=== PATIENT | female | born 1980 | race Caucasian/White ===

== ENCOUNTER → 2018-02-12 14:38 | Outpatient (CLI) | payer OTHER, SELFPAY ==
[2018-02-12 15:58] LABS: Absolute Lymphocyte Count 1.72 X10^3/ul (0.83-4.51); Absolute Neutrophil Count 4.4 X10^3/uL (2.0-7.7); Basophil# 0.02 X10^3/uL; Basophil% 0.3 % (0-1); Hematocrit 38.2 % (37-47); Hemoglobin 12.6 g/dl (12.0-15.0); Lymphocyte # 1.72 X10^3/ul (4.0); Lymphocyte % 25.9 % (19-41); Mean Corpuscular Hgb 30.3 pg (27.0-32.0); Mean Corpuscular Volume 91.8 fL (81-99); Mean Platelet Vol. 11.2 fl (6.2-12.0); Monocyte# 0.24 X10^3/uL; Monocyte% 3.6 % (0-10); Neutrophil # 4.44 X10^3/uL (2.7-7.7); POSITIVE COUNT NO; POSITIVE DIFFERENTIAL NO; POSITIVE MORPHOLOGY NO; Platelet Count 294 K/mm3 (150-450); RBC Distribution Width CV 13.4 % (11.6-14.6); Red Blood Count 4.16 M/mm3 (4.2-5.4); White Blood Count 6.6 K/mm3 (4.4-11.0)
[2018-02-12 16:12] LABS: Hemoglobin A1c 5.7 % (4.2-6.3)
[2018-02-12 16:52] LABS: ALB/GLOB Ratio 1.2 RATIO (0.9-2.4); AST(SGOT) 33 U/L (15-37); Alanine Aminotransfer ALT/SGPT 56 U/L (13-56); Albumin, Serum 4.2 g/dL (3.2-5.0); Alkaline Phosphatase 80 U/L (45-117); Anion Gap 11 (5-15); BUN 13 mg/dL (7-18); Calcium,Total 9.1 mg/dL (8.5-10.1); Chloride 103 mmol/L (98-107); Cholesterol 254 mg/dL (200); Creatinine, Serum 0.81 mg/dL (0.55-1.02); EST Glomerular Filtration Rate 84 mL/min (>60); Est Glom Filt Rate - Afr Amer 102 mL/min (>60); Globulin 3.6 g/dL (2.2-4.2); Glucose 108 mg/dL (74-106); High Density Lipoprotein 39 mg/dL; Potassium 3.6 mmol/L (3.5-5.1); Protein, Total 7.8 g/dL (6.4-8.2); Sodium Level 142 mmol/L (136-145); Thyroid Stim Hormone (TSH) 1.03 uIU/mL (0.358-3.74); Triglycerides 211 mg/dL; Very Low Density Lipoprotein 42 mg/dL (5-40)
== END ==
PROVIDERS: Family Provider Family Medicine; PCP Family Medicine; Visit Provider Family Medicine
DX: R10.11 Right upper quadrant pain (principal); E66.9 Obesity, unspecified; L83 Acanthosis nigricans
CPT/HCPCS: 36415; 80053; 80061; 83036; 84443; 85025

== ENCOUNTER → 2018-02-13 09:52 | Outpatient (CLI) | payer OTHER, SELFPAY ==
--- NOTE | 2018-02-13 09:58 | US_ITS ---
STUDY: ABDOMINAL ULTRASOUND - RIGHT UPPER QUADRANT REASON FOR VISIT: Female, 37 years old. Right upper quadrant pain. TECHNIQUE: Ultrasound evaluation of the right upper quadrant was performed with real-time and static duke-scale imaging. TECHNICAL QUALITY: Adequate. COMPARISON: None. FINDINGS: Liver: The liver measures 14.4 cm. There is increased echogenicity consistent with fatty infiltration. The bile ducts are within normal limits. There is hepatic color flow. The direction of portal flow is hepatopetal. There is no demonstrated mass lesion. Gallbladder: Normal distended gallbladder. The gallbladder wall measures 2.3 mm. There is a negative sonographic Wells's sign. There is no pericholecystic fluid. There are no gallstones. Common Bile Duct (C.B.D.): The common bile duct measures 3.3 mm. Pancreas: Normal size of the head, body and tail of the pancreas. There is normal echogenicity of the pancreas. There is no demonstrated pancreatic mass or cyst. Right Kidney: Normal size of the right kidney. . The right kidney measures 12.6 cm in length. No renal calculi nor cysts are visualized. There is no right hydronephrosis. US/Abdomen Limited IMPRESSION: Fatty infiltration of the liver. Electronically Signed: Virginia Mares MD at 10:59 EST Tel , Service support ,
== END ==
PROVIDERS: Family Provider Family Medicine; PCP Family Medicine; Referring Provider Family Medicine; Visit Provider Family Medicine
DX: R10.11 Right upper quadrant pain (principal)
CPT/HCPCS: 76705

== ENCOUNTER → 2018-03-09 08:49 | Outpatient (CLI) | payer OTHER, SELFPAY ==
--- NOTE | 2018-03-09 08:51 | NM_ITS ---
CLINICAL: 37-year-old female with reported history of right upper quadrant abdominal pain. RADIONUCLIDE HEPATOBILIARY SCINTIGRAPHY COMPARISON: Abdominal ultrasound report 02/13/2018 FINDINGS: Following the intravenous administration of 5.3 mCi of 99m Tc Mebrofenin, hepatobiliary images reveal: 1. Relatively prompt and homogeneous radiopharmaceutical concentration is noted by a normal sized liver. No parenchymal defects are identified. 2. Gallbladder activity is identified at 12 minutes post radiopharmaceutical administration. 3. Small intestinal tract is observed at 26 minutes following tracer injection. 4. Washout of the radiopharmaceutical by the hepatic parenchyma appears qualitatively normal. The patient was administered a fatty meal (8 ounces BOOST-30 grams fat). The post fatty meal consumption gallbladder ejection fraction calculated at 47 minutes was noted to be 31.0 % (normal greater than 30%). IN/Hepatobilliary Img w/Pharm Int IMPRESSION: 1. NORMAL 99m Tc Mebrofenin hepatobiliary imaging examination with fatty meal ingestion. A. A gallbladder ejection fraction calculated to be greater than 30% following the administration of a consumed fatty meal makes the probability of functional hepatobiliary disease (gallbladder and/or sphincter of Oddi dyskinesia) and/or organic hepatobiliary disease (chronic acalculous cholecystitis and/or cystic duct syndrome) to be low. (Kermit and Dell, J Nucl Med 43: 1603, 2002). Electronically Signed: eHctor Keith DO at 10:01 EST Tel , Service support ,
== END ==
PROVIDERS: Family Provider Family Medicine; PCP Family Medicine; Referring Provider Family Medicine; Visit Provider Family Medicine
DX: R10.11 Right upper quadrant pain (principal)
CPT/HCPCS: 78227; A9537

== ENCOUNTER 2018-04-10 10:01 | Day surgery (SDC) | payer OTHER, SELFPAY ==
[2018-03-18 12:33] VITALS: BMI 34.4
[2018-04-08 13:14] LABS: Bacteria 0 SEEN /hpf (None Seen); Mucous, Urine 0 SEEN /hpf (<or=2+)
--- NOTE | 2018-04-08 13:16 | EKG12_ITS ---
Test Reason : PREOP Blood Pressure : / mmHG Vent. Rate : 080 BPM Atrial Rate : 080 BPM P-R Int : 142 ms QRS Dur : 088 ms QT Int : 386 ms P-R-T Axes : 043 044 024 degrees QTc Int : 445 ms Normal sinus rhythm Normal ECG Confirmed by KELY RODRIGUEZ, JONAH ([id number]), television news video editor LEANDRA ALVARADO ([id number]) on 04/13/2018 9:59:49 AM Referred By: Azar Brady Confirmed By:JONAH EDGE MD
[2018-04-08 13:37] LABS: Color, Urine Yellow (Yellow); Glucose, Dipstick Normal (Normal); Ketone-Dipstick Negative (Negative); Leukocyte Esterase-Dipstick 500 /ul (Negative); Nitrite-Dipstick Negative (Negative); Occult Blood-Urine 150 /ul (Negative); Protein-Dipstick Negative (Negative); Specific Gravity, Urine 1.005 (1.002-1.030); Urine Bilirubin Dipstick Negative (Negative); Urine Clarity Clear (Clear); Urine Urobilinogen Normal (Normal)
[2018-04-08 13:44] LABS: Red Blood Cells-Urine 0-5 SEEN /hpf (0-5); Squamous Epithelial Cells - UA 0-5 SEEN /hpf (5-10); White Blood Cells 25-50 SEEN /hpf (0-5)
[2018-04-10] VITALS (8 sets, daily range): BP systolic 97–116; BP diastolic 56–66; PULSE 61–85; RESP 14–16; TEMP 36.5–37; O2SAT 92–100; BMI 33.3
[2018-04-10 10:21] LABS: Internal QC Validated? YES +Cl - CLEAR BKGD
[2018-04-10 10:25] LABS: Pregnancy, Urine Negative Negative
[2018-04-10] MEDS: Cefazolin 2 GM in 0.9% Normal Saline 100 ML IV (12:10)
--- NOTE | 2018-04-10 12:32 | DCINST_ITS ---
Discharge Diet: Light diet - advance as tolerated Discharge Activity: May Not Drive - for 2-3 days or while taking narcotic pain medications., - - Do not drive, work heavy equipment or sign legal documents for 24 hours. May shower in (days): 1 - with the bandage in place. Additional Activity Instructions:: Pain medication may cause nausea. You should typically eat light foods as you take your pain medications. Pain medication may also cause constipation. If this is a problem for you, please discuss with your doctor. Call your doctor if your incision/area has: Continuous Slow Oozing, Sudden Increased Bleeding, Increased Pain/ Swelling, Increased Redness, Foul Smelling Discharge Call your doctor if you observe: Fever of 101 or Higher Suture Line Care: Avoid Pulling/Pushing, Avoid Pinching/Bending Additional Dressing/Incision Instructions:: Leave operative bandaids on for 2 days. When you remove dressing, leave Steri-Strips on until your follow-up appointment, or until the Steri-Strips fall off on their own. Allergies/Adverse Reactions: Allergies No Known Allergies Allergy (Verified 03/18/18 12:33) Medications to take at Discharge fluoxetine 20 mg capsule 20 mg PO DAILY 03/18/18 ibuprofen 200 mg capsule 200 mg PO TID-QID PRN 03/18/18 loratadine 10 mg tablet 10 mg PO DAILY PRN 03/18/18 Hydrocodone Bitart/Apap 5-325 [[place] 5MG-325MG] 1 - 2 tab PO Q4H PRN PRN 5 Days #30 tab 04/10/18 The following prescriptions were given: Hydrocodone Bitart/Apap 5-325 [[place] 5MG-325MG] 1 - 2 tab PO Q4H PRN PRN 5 Days #30 tab PRN Reason: Pain Orders to be completed after discharge: 12 Lead EKG [[facility]] Location: None Selected Primary Care Physician: Dann Kent MD [Primary Care Provider] - Test Results: Test results from this visit will be discussed in further detail at your follow- up appointment, if applicable. Please Follow Up With: Azar Brady MD - Please call [phone] to schedule an appointment. When: 7 days after your surgery.
--- NOTE | 2018-04-10 12:40 | GALL_PTH ---
PATIENT: SHANTA SCOTT LOC: [facility] [place] U#:[id number] AGE/SX: 37/F ROOM: RE04/10/[address]: Dr. Azar Brady MD : 1980 BED: DIS: 04/10/2018 SPEC #: [id number] RECD: 04/13/18 07:15 STATUS: SYED ALEX #: [id number] JAKE: 04/10/18 12:[address]: Azar Brady DEPT: SURGICAL PATHOLOGY RECD BY: Hector Shah ENTERED: 04/13/18 08:10 SP TYPE: FARIDA ARANA DR: MD Dr. Dann Mack MD Tissues: Gallbladder, NOS Procedures: Surgery Specimen Level III HEADER OPERATION: Laparoscopic cholecystectomy PRE-OP DIAGNOSIS: Biliary dyskinesia TISSUE SUBMITTED: Gallbladder MICROSCOPIC DIAGNOSIS Gallbladder, cholecystectomy: Mild chronic cholecystitis and focal cholesterolosis. No stones are identified in the container or in the gallbladder. SJ:lashaun 04/14/18 MICROSCOPIC DESCRIPTION Slides are reviewed. GROSS DESCRIPTION Received is one container labeled with the patient's name and designated gallbladder. The specimen consists of a gallbladder measuring 9 cm in length and up to 3 cm in diameter. The external surface is pink-espinosa, smooth and glistening for the most part. Focally it is granular, hemorrhagic and contains cautery artifact. The gallbladder contains green-yellow mucoid bile. No stones are identified in the container or in the gallbladder. The mucosa is bile-stained and without any mass lesions. The gallbladder wall measures 0.1 cm in thickness. Bonderizer Operator sections from the gallbladder and the cystic duct are submitted in one cassette. / SJ:lashaun 04/13/18 TC:3 CPT: 76865
[2018-04-10] MEDS: Bupivacaine Mpf 0.5% 30 ML VIAL (12:50)
--- NOTE | 2018-04-10 12:51 | PCM.OPRPT ---
Problem List (1) Biliary dyskinesia Status: Acute (2) Right upper quadrant abdominal pain Status: Acute (3) Biliary colic symptom Status: Acute Report of Operation Date of Procedure: 04/10/18 Pre-Operative Diagnosis: 1. Biliary dyskinesia. 2. Right upper quadrant abdominal pain. 3. Biliary colic symptoms Post-Operative Diagnosis: Same Surgery/Procedure Performed:: Laparoscopic cholecystectomy Anesthesiologist: Cornelio Rod Specimen's removed: Gallbladder Drains: None Estimated Blood Loss (mL): < 25 CC Fluids Replaced: 900 cc of lactated Ringer's Description of Procedure: Patient was brought to the operating room placed in supine position under excellent general trach intubation the abdomen was sterilely prepped and draped in usual fashion. Local was injected infraumbilically. A curvilinear incision was made. Dissection was carried down to fascia. Fascia was grasped with Elliot. Varies needle was placed inside the abdomen. The abdomen was insufflated to 15 torr. A 10/12 trocar was placed without difficulty. Patient was placed in the head up and rotated to the left position. A subxiphoid #5 trocar was placed, inferior to this another #5 trocar was placed, laterally a #5 trocar was placed. All these under direct visualization without injury to underlying structures. Fundus of the gallbladder was grasped and retracted in cephalad direction infundibulum was grasped retracted laterally. I dissected out the cystic duct. Place hemoclips proximal and distally on the duct and ligated the duct. Identified the cystic artery. Placed hemoclips proximally distally on the artery and ligated the artery. Deliver the gallbladder from the gallbladder bed with use of electrocautery had excellent hemostasis and no spillage of bile. Placed a specimen specimen bag delivered through the umbilical port without difficulty. Reinflated the abdomen. Reinspected the liver bed. Good hemostasis was noted. Clips room in good placement. Remove the trochars under direct visualization good hemostasis was noted. Close the fascia the umbilical port with a [id number] stitch of 0 Vicryl. Skin incisions were closed with subcuticular stitches of 4-0 Monocryl. Steri-Strips were applied. Sterile dressings were applied. The patient tolerated the procedure well. - Admit VTE Documentation VTE Present on Admission: No VTE Mechan Device Prophylaxis: SCD's VTE Pharm Prophylaxis ordered?: No Reason prophylaxis not ordered:: Treatment Not Indicated
[2018-04-10] MEDS: HYDROcodone Bitartrate/Apap 5/325 Tablet PO (15:48)
== END 2018-04-10 16:35 | disposition home or self-care (01) ==
LOC: SDC 10:02 → AC 10:03
PROVIDERS: Anesthesiology; Family Provider Family Medicine; PCP Family Medicine; Referring Provider Surgery; Visit Provider Surgery
PROC: (CPT 47562; principal; 2018-04-10 12:20)
DX: K81.1 Chronic cholecystitis (principal); F41.9 Anxiety disorder, unspecified; Z79.899 Other long term (current) drug therapy
CPT/HCPCS: 47562; 81001; 81025; 88304; 93005; J7120; J2405

== ENCOUNTER → 2018-04-28 09:36 | Outpatient (CLI) | payer OTHER, SELFPAY ==
[2018-04-10 10:27] VITALS: BMI 33.3
[2018-04-28 09:39] LABS: Bacteria 0 SEEN /hpf (None Seen); Mucous, Urine 0 SEEN /hpf (<or=2+); Squamous Epithelial Cells - UA 0 SEEN /hpf (5-10); White Blood Cells 0 SEEN /hpf (0-5)
[2018-04-28 10:08] LABS: Color, Urine Yellow (Yellow); Glucose, Dipstick Normal (Normal); Ketone-Dipstick Negative (Negative); Leukocyte Esterase-Dipstick Negative /ul (Negative); Nitrite-Dipstick Negative (Negative); Occult Blood-Urine 250 /ul (Negative); Protein-Dipstick Negative (Negative); Specific Gravity, Urine 1.005 (1.002-1.030); Urine Bilirubin Dipstick Negative (Negative); Urine Clarity Clear (Clear); Urine Urobilinogen Normal (Normal)
[2018-04-28 10:15] LABS: Red Blood Cells-Urine 10-25 SEEN /hpf (0-5)
== END ==
PROVIDERS: Physician Assistant; Family Provider Family Medicine; PCP Family Medicine; Visit Provider Surgery
DX: R30.0 Dysuria (principal)
CPT/HCPCS: 81001

== ENCOUNTER → 2018-06-10 09:55 | Outpatient (CLI) | payer OTHER, SELFPAY ==
[2018-04-10 10:27] VITALS: BMI 33.3
[2018-06-10 13:15] LABS: ALB/GLOB Ratio 1.3 RATIO (0.9-2.4); AST(SGOT) 13 U/L (15-37); Alanine Aminotransfer ALT/SGPT 26 U/L (13-56); Albumin, Serum 4.2 g/dL (3.2-5.0); Alkaline Phosphatase 73 U/L (45-117); Anion Gap 7 (5-15); BUN 15 mg/dL (7-18); BUN/Creat Ratio 18.9 RATIO (10-20); Calcium,Total 9.3 mg/dL (8.5-10.1); Chloride 105 mmol/L (98-107); Cholesterol 184 mg/dL (200); Creatinine, Serum 0.79 mg/dL (0.55-1.02); EST Glomerular Filtration Rate 86 mL/min (>60); Est Glom Filt Rate - Afr Amer 104 mL/min (>60); Globulin 3.2 g/dL (2.2-4.2); Glucose 91 mg/dL (74-106); High Density Lipoprotein 38 mg/dL; Protein, Total 7.4 g/dL (6.4-8.2); Sodium Level 137 mmol/L (136-145); Triglycerides 127 mg/dL; Very Low Density Lipoprotein 25 mg/dL (5-40)
== END ==
PROVIDERS: Family Provider Family Medicine; PCP Family Medicine; Referring Provider Family Medicine; Visit Provider Family Medicine
DX: L83 Acanthosis nigricans (principal); R10.11 Right upper quadrant pain; E66.9 Obesity, unspecified
CPT/HCPCS: 36415; 80053; 80061; 83036

== ENCOUNTER → 2019-10-26 09:53 | Outpatient (CLI) | payer OTHER, SELFPAY ==
[2018-04-10 10:27] VITALS: BMI 33.3
[2019-10-26 12:31] LABS: ALB/GLOB Ratio 1.1 RATIO (0.9-2.4); AST(SGOT) 16 U/L (15-37); Alanine Aminotransfer ALT/SGPT 34 U/L (13-56); Alkaline Phosphatase 76 U/L (45-117); Anion Gap 4 (5-15); BUN 9 mg/dL (7-18); Calcium,Total 9.2 mg/dL (8.5-10.1); Chloride 105 mmol/L (98-107); Cholesterol 232 mg/dL (200); Creatinine, Serum 0.82 mg/dL (0.55-1.02); EST Glomerular Filtration Rate 83 mL/min (>60); Est Glom Filt Rate - Afr Amer 100 mL/min (>60); Globulin 3.5 g/dL (2.2-4.2); Glucose 92 mg/dL (74-106); High Density Lipoprotein 37 mg/dL; Protein, Total 7.5 g/dL (6.4-8.2); Sodium Level 137 mmol/L (136-145); Triglycerides 220 mg/dL; Very Low Density Lipoprotein 44 mg/dL (5-40)
[2019-10-26 12:43] LABS: Hemoglobin A1c 5.4 % (3.8-5.6)
== END ==
PROVIDERS: PCP Family Medicine; Referring Provider Family Medicine; Visit Provider Family Medicine
DX: K76.0 Fatty (change of) liver, not elsewhere classified (principal); E78.5 Hyperlipidemia, unspecified; R73.02 Impaired glucose tolerance (oral)
CPT/HCPCS: 36415; 80053; 80061; 83036

== ENCOUNTER 2020-11-14 17:58 | Emergency (ER) | payer OTHER, SELFPAY ==
[2018-04-10 10:27] VITALS: BMI 33.3
[2020-11-14 17:59] VITALS: BP 132/95; PULSE 106; RESP 18; TEMP 37.1; O2SAT 98; BMI 34.2
--- NOTE | 2020-11-14 18:28 | EX.ED.DYSGE1 ---
HPI History of Present Illness Chief Complaint: General Illness Narrative Narrative: Covid exposure with daughter diagnosed 3 days ago. Patient 2 days ago sore throat congestion sinus pressure. No fevers or headache. No vomiting or diarrhea. No loss of taste or smell. Reports is Covid vaccinated. No Covid infections in the past. History of seasonal allergies. Denies cough or respiratory symptoms. Prior similar symptoms: No PFSH PFSH Medical History Anxiety Back pain Chronic cholecystitis Constipation Home Medications fluoxetine 20 mg capsule 40 mg PO DAILY 03/18/18 [History Last Taken Unknown] ibuprofen 200 mg capsule 200 mg PO TID-QID PRN 03/18/18 [History Last Taken Unknown] loratadine 10 mg tablet 10 mg PO DAILY PRN 03/18/18 [History Last Taken Unknown] Allergy/AdvReac Type Severity Reaction Status Date / Time No Known Allergies Allergy Verified 11/14/20 18:58 Family History Mother Diabetes Surgical History History of knee surgery S/P laparoscopic cholecystectomy (~04/10/18) Social History Smoking Status: Never smoker ROS ROS ED Constitutional Constitutional ED: Denies chills, fever(s) or sweats Eyes Eyes: Denies change in vision ENT ENT ED: Reports sore throat and other Details: Sinus pressure and congestion ; Denies dysphagia Cardiovascular Cardiovascular: Denies chest pain, leg edema, palpitations or racing heartbeat Respiratory/Chest Respiratory/Chest: Denies cough, dyspnea or dyspnea on exertion Gastrointestinal Gastrointestinal: Denies abdominal pain, diarrhea, nausea or vomiting Genitourinary Genitourinary ED: Denies dysuria, hematuria or urinary frequency Musculoskeletal Musculoskeletal: Denies back pain, extremity pain or neck pain Integumentary Denies rash or wounds Neurologic Neurologic: Denies headache(s), paresthesias or weakness EXAM Physical Exam Const Vital Signs: 11/14/20 17:59 11/14/20 18:58 Temperature 98.7 F Temperature Source Temporal Pulse Rate 106 H Respiratory Rate 18 Respiratory Effort Normal Non-Labored Respiratory Pattern Normal Blood Pressure 132/95 H Blood Pressure Mean 107 Pulse Ox 98 Oxygen Delivery Method Room Air Positive well nourished and well developed General Appearance ED: well developed and NAD HEENT Reports moist mucous membranes HEENT Narrative: No posterior pharyngeal erythema. Airway patent. normocephalic and atraumatic Eyes PERRL, EOMs intact bilaterally and conjunctivae normal General Eye ED: Yes normal appearance of both eyes Neck no lymphadenopathy and supple General: Negative for tenderness Chest Wall Chest: Negative for tenderness Resp normal respiratory effort and normal air movement Effort and Inspection: symmetric chest movement; Negative for respiratory distress Cardio regular rate, regular rhythm and no murmurs Rate: tachycardic Peripheral Pulses: pulses 2+ throughout GI normal to inspection, nondistended, normoactive bowel sounds and non-tender Palpation: Negative for guarding or rebound tenderness present Back/Spine no CVA tenderness and no thoracic nor lumbar tenderness Extremity normal to inspection General Extremety ED: Negative for edema or tenderness General Extremity: Negative for edema Neuro oriented x3 and no sensory deficits noted Sensorium / Orientation: awake and alert Skin no rashes or lesions noted and no wounds MDM MDM MDM Narrative Medical decision making narrative: Patient Covid testing obtained and positive. No respiratory symptoms. 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 Return precautions discussed. All questions answered. Discharge Plan Triage Chief Complaint: General Illness ED Provider: Terrance Garrett Dx/Rx/DC Orders Clinical Impression: COVID-19 virus infection Instructions: Coronavirus Disease 2019 (COVID-19): Caring for Yourself or Others Prescriptions: No Action fluoxetine [Prozac] 20 mg capsule 40 mg PO DAILY RF: 0 ibuprofen 200 mg capsule 200 mg PO TID-QID PRN (Reason: Pain) RF: 0 loratadine 10 mg tablet 10 mg PO DAILY PRN (Reason: Allergies) RF: 0 Primary Care Provider: Dann Kent Referrals: Dann Kent MD [Primary Care Provider] - 1 Week Disposition Disposition: Home, Self Care
[2020-11-14 20:02] VITALS: PULSE 97; RESP 18; O2SAT 95
== END 2020-11-14 20:02 | disposition home or self-care (01) ==
PROVIDERS: Emergency Provider Emergency Medicine; PCP Family Medicine
DX: U07.1 COVID-19 (principal); F41.9 Anxiety disorder, unspecified; Z79.899 Other long term (current) drug therapy
CPT/HCPCS: 87426; 99282

== ENCOUNTER → 2021-02-01 09:54 | Outpatient (CLI) | payer OTHER, SELFPAY ==
[2021-02-01 12:15] LABS: Absolute Lymphocyte Count 1.45 X10^3/uL (0.83-4.51); Basophil# 0.05 X10^3/uL; Eosinophil# 0.35 X10^3/uL; Eosinophils% 6.8 % (0-5); Lymphocyte # 1.45 X10^3/ul (0.83-4.51); Lymphocyte % 28.2 % (19-41); Mean Corp Hgb Conc 33.3 g/dL (32-36); Mean Corpuscular Hgb 31.5 pg (27.0-32.0); Mean Corpuscular Volume 94.4 fL (81-99); Mean Platelet Vol. 10.9 fl (6.2-12.0); Monocyte# 0.31 X10^3/uL; NRBC Flagged by Analyzer 0 % (0-5); Neutrophil # 2.97 X10^3/uL (2.7-7.7); Neutrophil % 57.6 % (47-70); Platelet Count 314 K/mm3 (150-450); RBC Distribution Width CV 14.4 % (11.6-14.6); RBC Distribution Width SD 50.1 fl (35.1-43.9); Red Blood Count 4.13 M/mm3 (4.2-5.4); White Blood Count 5.2 K/mm3 (4.4-11.0)
[2021-02-01 12:38] LABS: Hemoglobin A1c 5.3 % (3.8-5.6)
[2021-02-01 12:47] LABS: AST(SGOT) 95 U/L (15-37); Alanine Aminotransfer ALT/SGPT 154 U/L (13-56); Albumin, Serum 3.9 g/dL (3.2-5.0); Alkaline Phosphatase 102 U/L (45-117); Anion Gap 6 (5-15); BUN 18 mg/dL (7-18); BUN/Creat Ratio 22.6 RATIO (10-20); Calcium,Total 9.6 mg/dL (8.5-10.1); Chloride 104 mmol/L (98-107); Cholesterol 253 mg/dL (200); EST Glomerular Filtration Rate 85 mL/min (>60); Est Glom Filt Rate - Afr Amer 103 mL/min (>60); Globulin 4.1 g/dL (2.2-4.2); Glucose 97 mg/dL (74-106); High Density Lipoprotein 43 mg/dL; Potassium 3.9 mmol/L (3.5-5.1); Sodium Level 137 mmol/L (136-145); Triglycerides 154 mg/dL; Very Low Density Lipoprotein 31 mg/dL (5-40)
== END ==
PROVIDERS: PCP Family Medicine; Referring Provider Family Medicine; Visit Provider Family Medicine
DX: E78.5 Hyperlipidemia, unspecified (principal); R73.02 Impaired glucose tolerance (oral)
CPT/HCPCS: 36415; 80053; 80061; 83036; 85025

== ENCOUNTER → 2021-11-21 | Outpatient (CLI) | payer OTHER, SELFPAY ==
[2021-11-21 17:54] LABS: Absolute Lymphocyte Count 2.18 X10^3/uL (0.83-4.51); Absolute Neutrophil Count 3.9 X10^3/uL (2.0-7.7); Basophil# 0.05 X10^3/uL; Basophil% 0.7 % (0-1); Eosinophil# 0.57 X10^3/uL; Hematocrit 38.7 % (37-47); Hemoglobin 12.6 g/dL (12.0-15.0); Lymphocyte # 2.18 X10^3/ul (0.83-4.51); Lymphocyte % 30.7 % (19-41); Mean Corp Hgb Conc 32.6 g/dL (32-36); Mean Corpuscular Hgb 30.5 pg (27.0-32.0); Mean Corpuscular Volume 93.7 fL (81-99); Mean Platelet Vol. 11.6 fl (6.2-12.0); Monocyte# 0.38 X10^3/uL; Monocyte% 5.3 % (0-10); NRBC Flagged by Analyzer 0 % (0-5); Neutrophil # 3.92 X10^3/uL (2.7-7.7); Neutrophil % 55.2 % (47-70); Platelet Count 330 K/mm3 (150-450); RBC Distribution Width CV 13.2 % (11.6-14.6); RBC Distribution Width SD 45.1 fl (35.1-43.9); Red Blood Count 4.13 M/mm3 (4.2-5.4); White Blood Count 7.1 K/mm3 (4.4-11.0)
[2021-11-21 18:12] LABS: Vitamin B12 538 pg/mL (211-911); Vitamin D,25 Hydroxy 21.4 ng/mL
[2021-11-21 18:33] LABS: ALB/GLOB Ratio 0.9 RATIO (0.9-2.4); AST(SGOT) 183 U/L (15-37); Alanine Aminotransfer ALT/SGPT 257 U/L (13-56); Albumin, Serum 3.9 g/dL (3.2-5.0); Alkaline Phosphatase 109 U/L (45-117); Anion Gap 8 (5-15); BUN 12 mg/dL (7-18); BUN/Creat Ratio 12.4 RATIO (10-20); Calcium,Total 9.7 mg/dL (8.5-10.1); Chloride 103 mmol/L (98-107); Cholesterol 235 mg/dL (200); Creatinine, Serum 0.96 mg/dL (0.55-1.02); EST Glomerular Filtration Rate 68 mL/min (>60); Est Glom Filt Rate - Afr Amer 82 mL/min (>60); Globulin 4.4 g/dL (2.2-4.2); Glucose 89 mg/dL (74-106); High Density Lipoprotein 39 mg/dL; Potassium 3.8 mmol/L (3.5-5.1); Protein, Total 8.3 g/dL (6.4-8.2); Sodium Level 136 mmol/L (136-145); T4 Free Direct 1.22 ng/dL (0.76-1.46); Thyroid Stim Hormone (TSH) 1.96 uIU/mL (0.358-3.74); Triglycerides 175 mg/dL; Very Low Density Lipoprotein 35 mg/dL (5-40)
[2021-11-21 21:59] LABS: Hemoglobin A1c 5.7 % (3.8-5.6)
== END | disposition home or self-care (01) ==
PROVIDERS: PCP Family Medicine; Referring Provider Family Medicine; Visit Provider Family Medicine
DX: E78.5 Hyperlipidemia, unspecified (principal); R53.83 Other fatigue; R73.02 Impaired glucose tolerance (oral)
CPT/HCPCS: 36415; 80053; 80061; 82306; 82607; 83036; 84439; 84443; 85025

== ENCOUNTER → 2021-12-10 | Outpatient (CLI) | payer OTHER, SELFPAY ==
--- NOTE | 2021-12-10 08:03 | US_ITS ---
STUDY: ABDOMINAL ULTRASOUND - RIGHT UPPER QUADRANT REASON FOR VISIT: Female, 41 years old elevated liver function test -- FATTY LIVER . Status post cholecystectomy. TECHNIQUE: Ultrasound evaluation of the right upper quadrant was performed with real-time and static duke-scale imaging. TECHNICAL QUALITY: Adequate. COMPARISON: Comparison is made with prior study dated 02/13/2018. FINDINGS: Liver: The liver is enlarged and measures 18.6 cm. There is increased echogenicity consistent with fatty infiltration. The bile ducts are within normal limits. There is hepatic color flow. The direction of portal flow is hepatopetal. There is no demonstrated mass lesion. Gallbladder: The patient is status post cholecystectomy. Common Bile Duct (C.B.D.): The common bile duct measures 5.4 mm. Pancreas: Normal size of the head, body and tail of the pancreas. There is normal echogenicity of the pancreas. There is no demonstrated pancreatic mass or cyst. Right Kidney: Normal size of the right kidney. The right kidney measures 12 cm x 5.3 cm x 4.1 cm. Normal renal cortex. The right cortex measures 1.5 cm. There is no demonstrated renal mass or cyst. There is no right hydronephrosis. US/Abdomen Limited IMPRESSION: Hepatomegaly and diffuse fatty infiltration of the liver. Electronically Signed: Michael Rogers MD at 14:49 EDT ,
== END | disposition home or self-care (01) ==
PROVIDERS: PCP Family Medicine; Referring Provider Family Medicine; Visit Provider Family Medicine
DX: K76.0 Fatty (change of) liver, not elsewhere classified (principal)
CPT/HCPCS: 76705

== ENCOUNTER → 2023-09-04 | Outpatient (CLI) | payer OTHER, SELFPAY ==
[2023-09-04 12:17] LABS: Absolute Lymphocyte Count 1.96 X10^3/uL (0.83-4.51); Basophil# 0.05 X10^3/uL; Basophil% 0.8 % (0-1); Eosinophil# 0.53 X10^3/uL; Eosinophils% 8.9 % (0-5); Hematocrit 36.2 % (37-47); Hemoglobin 11.9 g/dL (12.0-15.0); Lymphocyte # 1.96 X10^3/ul (0.83-4.51); Lymphocyte % 32.8 % (19-41); Mean Corp Hgb Conc 32.9 g/dL (32-36); Mean Corpuscular Hgb 30.1 pg (27.0-32.0); Mean Corpuscular Volume 91.6 fL (81-99); Monocyte# 0.37 X10^3/uL; Monocyte% 6.2 % (0-10); NRBC Flagged by Analyzer 0 % (0-5); Neutrophil # 3.04 X10^3/uL (2.7-7.7); Platelet Count 331 K/mm3 (150-450); RBC Distribution Width CV 13.6 % (11.6-14.6); RBC Distribution Width SD 46.1 fl (35.1-43.9); Red Blood Count 3.95 M/mm3 (4.2-5.4)
[2023-09-04 13:49] LABS: AST(SGOT) 91 U/L (15-37); Alanine Aminotransfer ALT/SGPT 163 U/L (13-56); Albumin, Serum 3.9 g/dL (3.2-5.0); Alkaline Phosphatase 101 U/L (45-117); Anion Gap 7 (5-15); BUN 12 mg/dL (7-18); BUN/Creat Ratio 13.3 RATIO (10-20); Calcium,Total 9.9 mg/dL (8.5-10.1); Chloride 105 mmol/L (98-107); EST Glomerular Filtration Rate 72 mL/min (>60); Est Glom Filt Rate - Afr Amer 87 mL/min (>60); Estradiol 68.6 pg/mL; Follicle Stimulating Hormone 8.3 mIU/mL; Globulin 4.1 g/dL (2.2-4.2); Glucose 88 mg/dL (74-106); Potassium 3.9 mmol/L (3.5-5.1); Prolactin 7.3 ng/mL; Sodium Level 136 mmol/L (136-145); Thyroid Stim Hormone (TSH) 1.56 uIU/mL (0.358-3.74)
== END | disposition home or self-care (01) ==
LOC: MFPLAB 10:01
PROVIDERS: Nurse Practitioner Family; PCP Family Medicine; Visit Provider Family Medicine
DX: N92.6 Irregular menstruation, unspecified (principal)
CPT/HCPCS: 36415; 80053; 82670; 83001; 83002; 84146; 84443; 85025

== ENCOUNTER → 2023-09-15 | Outpatient (CLI) | payer OTHER, SELFPAY ==
--- NOTE | 2023-09-15 09:12 | US_ITS ---
STUDY: ULTRASOUND OF THE FEMALE PELVIS - COMPLETE REASON FOR EXAM: Female, 43 years old. ABNORMAL UTERINE BLEEDING LMP: August 29, 2023 TECHNIQUE: Transvaginal TECHNICAL QUALITY: Adequate. COMPARISON: None. FINDINGS: The uterus is anteverted and is in a midline position. The uterus measures 10 cm x 6.5 cm x 6 cm. Normal uterine cervix. The endometrium is thickened and measures 12 mm in thickness, and is hyperechoic. There is no demonstrated endometrial mass. Heterogeneous echotexture of the uterus suggestive of fibroid change although no focal fibroid is seen. I.U.D. - The patient does not have an I.U.D. The right ovary is visualized. The right ovary measures 3.1 cm x 1.9 cm x 1.8 cm. There is no right ovarian cyst or ovarian mass. There is no visualized right adnexal mass or complex lesion. There is normal arterial and normal venous vascularity. The left ovary is visualized. The left ovary measures 2.8 cm x 2.4 cm x 1.8 cm. There is no left ovarian cyst or ovarian mass. There is no visualized left adnexal mass or complex lesion. There is normal arterial and normal venous vascularity. There is no fluid in the cul-de-sac. US/Transvaginal Non- IMPRESSION: Thickened endometrium. Heterogeneous appearance of the myometrium suggestive of fibroid changes although no focal fibroid is seen. Electronically Signed: Michael Rogers MD at 14:47 EDT ,
== END | disposition home or self-care (01) ==
LOC: US 09:09
PROVIDERS: PCP Family Medicine; Referring Provider Nurse Practitioner Family; Visit Provider Nurse Practitioner Family
DX: N93.9 Abnormal uterine and vaginal bleeding, unspecified (principal)
CPT/HCPCS: 76830

== ENCOUNTER → 2023-11-11 | Outpatient (CLI) | payer OTHER, SELFPAY ==
--- NOTE | 2023-11-11 10:43 | BI_ITS ---
MAMMOGRAPHY - BILATERAL SCREENING REASON FOR EXAM: Female, 43 years old. Routine annual screening examination. PERTINENT HISTORY: Non-contributory. TECHNIQUE: Digital bilateral breast blanca (3D mammographic acquisition) in the CC and MLO projections. 2-D mediolateral oblique (MLO) and craniocaudad (CC) views of both breasts were obtained. CAD: Full Field Digital Mammography with Computer Added Detection was performed. COMPARISON: None. Baseline examination. FINDINGS: Breast Composition: There are scattered areas of fibroglandular density. There are no dominant masses or suspicious calcifications. Small fat-containing bilateral axillary lymph nodes. No other significant abnormalities are identified. There has been no significant change since the prior study. BI/SCRN MAMM (CAD)W/BLANCA BILAT IMPRESSION: Stable bilateral screening mammogram. Yearly follow-up mammogram recommended. (A) ASSESSMENT CATEGORY: BIRADS Category 2: Benign. A letter regarding these results will be sent to the patient by the facility within 30 days. Approximately 10% of breast cancers are not detected by mammography. A normal mammogram should not delay biopsy of a clinically suspicious abnormality. [id number] Electronically Signed: Michael Rogers MD at 11:59 EDT ,
== END | disposition home or self-care (01) ==
LOC: OPBI 10:42
PROVIDERS: PCP Family Medicine; Referring Provider Nurse Practitioner Family; Visit Provider Nurse Practitioner Family
DX: Z12.31 Encounter for screening mammogram for malignant neoplasm of breast (principal)
CPT/HCPCS: 77063; 77067

== ENCOUNTER → 2023-11-26 | Outpatient (CLI) | payer OTHER, SELFPAY ==
[2023-12-01 09:07] LABS: HPV APTIMA, High Risk Negative (Negative)
== END | disposition home or self-care (01) ==
LOC: LABSPEC 13:27
PROVIDERS: PCP Family Medicine; Referring Provider Nurse Practitioner Family; Visit Provider Nurse Practitioner Family
DX: Z12.4 Encounter for screening for malignant neoplasm of cervix (principal)
CPT/HCPCS: 87624; 88175; G0145

== ENCOUNTER → 2025-01-05 | Outpatient (CLI) | payer OTHER, SELFPAY | END | disposition home or self-care (01) | LOC: OPBI 07:58 | PROVIDERS: PCP Family Medicine; Referring Provider Nurse Practitioner Family; Visit Provider Nurse Practitioner Family | DX: Z12.31 Encounter for screening mammogram for malignant neoplasm of breast (principal) | CPT/HCPCS: 77063; 77067 ==